=== PATIENT | male | born 1980 | race Caucasian/White ===

== ENCOUNTER 2017-03-05 19:56 | Emergency (ER) | payer OTHER ==
[~2017-03-05] VITALS: Ht 177.8 cm; Wt 96.0 kg
[2017-03-05 20:03] VITALS: BP 125/62; PULSE 90; RESP 18
[2017-03-05 20:06] VITALS: BP 125/62; PULSE 85; RESP 18; O2SAT 98
[2017-03-05] MEDS ORDERED: ONDANSETRON HCL 4 MG/2 ML VIAL IV ONE (20:15)
[2017-03-05] MEDS ORDERED: SODIUM CHLOR 0.9% 1000 ML INJ 1,000 ML IV ONE ×2 (20:15→21:15)
[2017-03-05] MEDS ORDERED: RISP3 PO (20:22)
[2017-03-05] MEDS ORDERED: REST15CA PO (20:22)
[2017-03-05] MEDS ORDERED: TRAZ1TAB45 PO (20:22)
[2017-03-05] MEDS ORDERED: SERO100T PO (20:22)
[2017-03-05] MEDS ORDERED: PROZ20CA11 PO (20:22)
[2017-03-05 20:23] VITALS: BP 123/62; PULSE 81; RESP 18; O2SAT 98
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
[2017-03-05 20:30] VITALS: TEMP 97.8
[2017-03-05 20:39] LABS: AUTOMATED NEUTROPHIL # 4.7 TH/MM3 (1.8-7.7); BASOPHIL # 0.1 TH/MM3 (0-0.2); BASOPHIL % 0.9 % (0.0-2.0); EOSINOPHIL # 0.2 TH/MM3 (0-0.4); EOSINOPHIL % 2.3 % (0.0-4.0); HEMATOCRIT 39.1 % (39.0-51.0); HEMO FLAGS DIFF FINAL; LYMPH % 27.3 % (9.0-44.0); LYMPHOCYTE # 2.2 TH/MM3 (1.0-4.8); MEAN CELL VOLUME 94.8 FL (80.0-100.0); MEAN CORPUSCULAR HEMOGLOBIN 32.7 PG (27.0-34.0); MEAN CORPUSCULAR HGB CONC 34.5 % (32.0-36.0); NEUT % 58.5 % (16.0-70.0); PLATELET COUNT 224 TH/MM3 (150-450); RED BLOOD COUNT 4.12 MIL/MM3 (4.50-5.90); RED CELL DISTRIBUTION WIDTH 13.8 % (11.6-17.2); WHITE BLOOD COUNT 8.1 TH/MM3 (4.0-11.0)
[2017-03-05 20:56] LABS: ANION GAP 8 MEQ/L (5-15); AST (GOT) 11 U/L (15-37); BICARBONATE 27.4 MEQ/L (21.0-32.0); BLOOD UREA NITROGEN 15 MG/DL (7-18); CHLORIDE 103 MEQ/L (98-107); GLOMERULAR FILTRATION RATE 89 ML/MIN (>89); MAGNESIUM 2.2 MG/DL (1.5-2.5); SODIUM (NA) 138 MEQ/L (136-145)
[2017-03-05 20:57] LABS: ALT (GPT) 19 U/L (12-78)
[2017-03-05 20:58] LABS: ALCOHOL LESS THAN 3 MG/DL (0-5)
[2017-03-05] MEDS ORDERED: POTASSIUM CHLORIDE 20 MEQ CONTROLLED RELEASE TAB PO ONE (21:00)
[2017-03-05 21:05] LABS: ACETAMINOPHEN LESS THAN 2.0 MCG/ML (10.0-30.0); ALKALINE PHOSPHATASE 78 U/L (45-117); TOTAL BILIRUBIN ADULT 0.3 MG/DL (0.2-1.0)
[2017-03-05 22:38] LABS: BLOOD, URINE SMALL (NEG); COMMENT (UR) CULT NOT INDICATED; CULTURE IF INDICATED CULT NOT INDICATED; GLUCOSE,URINE NEG (NEG); KETONE, URINE NEG (NEG); MUCUS URINE FEW /lpf (OCC); NITRITE,URINE NEG (NEG); URINE COLOR YELLOW (YELLW/STRAW)
[2017-03-06 00:30] VITALS: BP 104/58; PULSE 68; RESP 16; O2SAT 97
[2017-03-06 06:53] VITALS: BP 106/59; PULSE 65; RESP 12; O2SAT 95
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
--- NOTE | 2017-03-06 14:20 | EKG ---
Date Performed: 03/05/2017 Time Performed: 20:05:46 PTAGE: 36 years EKG: Sinus rhythm NORMAL ECG NO PREVIOUS TRACING DOCTOR: Michael Jennings Interpretating Date/Time 03/06/2017 14:14:20
--- NOTE | 2017-03-06 14:21 | PD ---
Physical Exam Date Seen by Provider: Mar 06, 2017 Time Seen by Provider: 07:00 Narrative Patient signed out to me by Dr. Castanon at 7 AM, medically cleared awaiting psychiatric evaluation, please see Dr. Castanon's note for further details. At 2: 20 PM, Dr. Pan of psychiatry had seen the patient, and notes that he thinks that the patient is malingering, does not feel that he has an immediate suicide risk although patient has suicidal ideation in the past. At this point, he thinks that the patient can follow-up with [facility] on a voluntary basis which the patient had agreed to do. My plan would be to release him so he can follow-up with [facility]. Return as needed for any new issues. Data Data Last Documented VS Vital Signs Date Time Temp Pulse Resp B/P (MAP) Pulse Ox O2 Delivery O2 Flow Rate FiO2 03/06/17 06:53 65 12 106/59 (75) 95 Room Air 03/05/17 20:30 97.8 Orders Orders Complete Blood Count With Diff (03/05/17 20:15) Comprehensive Metabolic Panel (03/05/17 20:15) Lipase (03/05/17 20:15) Urinalysis - C+S If Indicated (03/05/17 20:15) Magnesium (Mg) (03/05/17 20:15) Thyroid Stimulating Hormone (03/05/17 20:15) Iv Access Insert/Monitor (03/05/17 20:15) Ecg Monitoring (03/05/17 20:15) Oximetry (03/05/17 20:15) Drug Screen, Random Urine (03/05/17 20:15) Alcohol (Ethanol) (03/05/17 20:15) Salicylates (Aspirin) (03/05/17 20:15) Tylenol (Acetaminophen) (03/05/17 20:15) Sodium Chlor 0.9% 1000 Ml Inj (Ns 1000 M (03/05/17 20:15) Ondansetron Inj (Zofran Inj) (03/05/17 20:15) Oral Rehydration (03/05/17 20:18) Potassium Chloride (Kcl) (03/05/17 21:00) Diet As Tolerated (03/05/17 21:08) Psych Screen (03/05/17 21:08) Electrocardiogram (03/05/17 20:05) Sodium Chlor 0.9% 1000 Ml Inj (Ns 1000 M (03/05/17 21:15) Labs Laboratory Tests Test 03/05/17 20:15 03/05/17 22:00 White Blood Count 8.1 TH/MM3 Red Blood Count 4.12 MIL/MM3 Hemoglobin 13.5 GM/DL Hematocrit 39.1 % Mean Corpuscular Volume 94.8 FL Mean Corpuscular Hemoglobin 32.7 PG Mean Corpuscular Hemoglobin Concent 34.5 % Red Cell Distribution Width 13.8 % Platelet Count 224 TH/MM3 Mean Platelet Volume 8.4 FL Neutrophils (%) (Auto) 58.5 % Lymphocytes (%) (Auto) 27.3 % Monocytes (%) (Auto) 11.0 % Eosinophils (%) (Auto) 2.3 % Basophils (%) (Auto) 0.9 % Neutrophils # (Auto) 4.7 TH/MM3 Lymphocytes # (Auto) 2.2 TH/MM3 Monocytes # (Auto) 0.9 TH/MM3 Eosinophils # (Auto) 0.2 TH/MM3 Basophils # (Auto) 0.1 TH/MM3 CBC Comment DIFF FINAL Differential Comment Blood Urea Nitrogen 15 MG/DL Creatinine 0.96 MG/DL Random Glucose 115 MG/DL Total Protein 7.1 GM/DL Albumin 3.8 GM/DL Calcium Level 8.5 MG/DL Magnesium Level 2.2 MG/DL Alkaline Phosphatase 78 U/L Aspartate Amino Transf (AST/SGOT) 11 U/L Alanine Aminotransferase (ALT/SGPT) 19 U/L Total Bilirubin 0.3 MG/DL Sodium Level 138 MEQ/L Potassium Level 3.0 MEQ/L Chloride Level 103 MEQ/L Carbon Dioxide Level 27.4 MEQ/L Anion Gap 8 MEQ/L Estimat Glomerular Filtration Rate 89 ML/MIN Lipase 122 U/L Thyroid Stimulating Hormone 3rd Gen 1.840 uIU/ML Salicylates Level 4.0 MG/DL Acetaminophen Level LESS THAN 2.0 MCG/ML Ethyl Alcohol Level LESS THAN 3 MG/DL Urine Color YELLOW Urine Turbidity CLEAR Urine pH 6.0 Urine Specific [place] 1.013 Urine Protein TRACE mg/dL Urine Glucose (UA) NEG mg/dL Urine Ketones NEG mg/dL Urine Occult Blood SMALL Urine Nitrite NEG Urine Bilirubin NEG Urine Urobilinogen LESS THAN 2.0 MG/DL Urine Leukocyte Esterase NEG Urine RBC 6 /hpf Urine WBC 1 /hpf Urine Mucus FEW /lpf Urine Sperm RARE Microscopic Urinalysis Comment CULT NOT INDICATED Urine Opiates Screen NEG Urine Barbiturates Screen NEG Urine Amphetamines Screen NEG Urine Benzodiazepines Screen NEG Urine Cocaine Screen NEG Urine Cannabinoids Screen POS MDM Medical Record Reviewed: Yes Supervised Visit with PAULINA: No Diagnosis Primary Impression: Adjustment disorder with mixed disturbance of emotions and conduct Additional Impressions: Cannabis abuse Malingering Disposition: 66 DISC TO PSYCH CARE FACILITY (follow-up with [facility]) Condition: Stable Farnaz Comer MD Mar 06, 2017 14:21
[2017-03-06 15:00] VITALS: BP 115/70; PULSE 75; RESP 16; TEMP 98.6; O2SAT 98
== END 2017-03-06 16:00 | disposition home or self-care (01) ==
LOC: NEPC 19:56
DX: F43.25 Adjustment disorder with mixed disturbance of emotions and conduct (principal); F12.10 Cannabis abuse, uncomplicated; F17.210 Nicotine dependence, cigarettes, uncomplicated; R11.2 Nausea with vomiting, unspecified; R42 Dizziness and giddiness; R51 Headache; R30.0 Dysuria; R35.0 Frequency of micturition; F32.9 Major depressive disorder, single episode, unspecified; F41.9 Anxiety disorder, unspecified; Z59.0 Homelessness; Z79.899 Other long term (current) drug therapy
CPT/HCPCS: 80053; 80307; 81001; 83690; 83735; 84443; 85025; 93005; 96361; 96374; 99284; J2405; J7030

== ENCOUNTER 2017-04-02 21:35 | Emergency (ER) | payer SELFPAY ==
[~2017-04-02 21:35] MED LIST: PROZ20CA11 PO; REST15CA PO; RISP3 PO; SERO100T PO; TRAZ1TAB45 PO
[2017-04-02 21:38] VITALS: BP 133/63; PULSE 106; RESP 16; TEMP 100.5; O2SAT 96
[2017-04-02 23:37] VITALS: BP 129/59; PULSE 98; RESP 18; TEMP 100.4; O2SAT 98
[2017-04-02] MEDS ORDERED: BACT800T5 PO (23:52)
--- NOTE | 2017-04-02 23:53 | PD ---
HPI Chief Complaint: Fever Time Seen by Provider: 23:46 Travel History International Travel<30 days: No Contact w/Intl Traveler<30days: No Traveled to known affect area: No History of Present Illness HPI PATIENT NOTICED SORES TO EXTREMITIES OVER LAST 3 DAYS THAT ARE NOW "WEEPY" , DENIES N/V/D/ABDPAIN/BUSH/CP. NO AGGRAVATING/ALLEVIATING FACTORS. PT DENIES SI/HI PMHX: ASTHMA, BIPOLAR PFSH Past Medical History Asthma: Yes Anxiety: Yes Depression: Yes Diminished Hearing: No Tetanus Vaccination: Unknown Past Surgical History Surgical History: No Previous Surgery Social History Alcohol Use: No Tobacco Use: Yes (/2 PPD) Substance Use: No ("DENIES") Allergies-Medications (Allergen,Severity, Reaction): Coded Allergies: No Known Allergies (Unverified , 04/02/17) Reported Meds & Prescriptions Reported Meds & Active Scripts Active Reported Seroquel (Quetiapine Fumarate) 100 Mg Tab 150 Mg PO HS Risperdal (Risperidone) 3 Mg Tab 3 Mg PO HS Prozac (Fluoxetine HCl) 20 Mg Cap 20 Mg PO DAILY Trazodone (Trazodone HCl) 150 Mg Tablet 150 Mg PO HS Restoril (Temazepam) 15 Mg Cap 15 Mg PO BID PRN Review of Systems Except as stated in HPI: all other systems reviewed are Neg Skin: Positive Lesions Physical Exam Narrative GENERAL: SKIN: Warm and dry. PATIENT HAS 2 SORES ON RIGHT FOREARM (ONE 3CM THE OTHER 5CM ) HONEY CRUSTED LESION NOTED WITH SORROUNDING ERYTHEMA HEAD: Atraumatic. Normocephalic. EYES: Pupils equal and round. No scleral icterus. No injection or drainage. ENT: No nasal bleeding or discharge. Mucous membranes pink and moist. NECK: Trachea midline. No JVD. CARDIOVASCULAR: Regular rate and rhythm. RESPIRATORY: No accessory muscle use. Clear to auscultation. GASTROINTESTINAL: Abdomen soft, non-tender, nondistended. MUSCULOSKELETAL: Extremities without clubbing, cyanosis, or edema. No obvious deformities. NEUROLOGICAL: Awake and alert. No obvious cranial nerve deficits. Motor grossly within normal limits. Five out of 5 muscle strength in the arms and legs. Normal speech. PSYCHIATRIC: Appropriate mood and affect; insight and judgment normal. Data Data Last Documented VS Vital Signs Date Time Temp Pulse Resp B/P (MAP) Pulse Ox O2 Delivery O2 Flow Rate FiO2 10/16/17 23:37 100.4 98 18 129/59 (82) 98 Room Air Orders Orders Ibuprofen (Motrin) (04/03/17 00:00) Sulfamet-Trimeth Ds 800-160 Mg (Bactrim (04/03/17 00:00) MDM Medical Decision Making Medical Screen Exam Complete: Yes Emergency Medical Condition: Yes Medical Record Reviewed: Yes Differential Diagnosis CELLULITIS V LYMPHANGITIS V ABSCESS Narrative Course AFTER EVAL PATIENT NOTED TO NOT HAVE ANY MAJOR INDURATION/FLUCTUANCE OR STREAKING. Diagnosis Primary Impression: Cellulitis Qualified Codes: L03.113 - Cellulitis of right upper limb Patient Instructions: Cellulitis (ED), General Instructions Scripts Sulfamethoxazole-Trimethoprim (Bactrim DS) 800-160 Mg Tab 1 TAB PO BID for Infection, #20 TAB 0 Refills Prov: Abraham Lr MD 04/02/17 Disposition: 01 DISCHARGE HOME Condition: Stable Abraham Lr MD Apr 02, 2017 23:53
[2017-04-03] MEDS ORDERED: IBUPROFEN 600 MG TAB PO ONE
[2017-04-03] MEDS ORDERED: SULFAMETHOXAZOLE-TRIMETHOPRIM DS 800-160 MG TAB PO ONE
== END 2017-04-03 00:41 | disposition home or self-care (01) ==
LOC: NEPE 21:35
DX: L03.113 Cellulitis of right upper limb (principal); J45.909 Unspecified asthma, uncomplicated; Z72.0 Tobacco use
CPT/HCPCS: 99283

== ENCOUNTER 2017-07-21 11:22 | Emergency (ER) | payer OTHER ==
[~2017-07-21] VITALS: Ht 177.8 cm; Wt 93.0 kg
[~2017-07-21 11:22] MED LIST changes: +BACT800T5 PO; +TRAZ1TAB14 PO; -TRAZ1TAB45 PO
[2017-07-21 11:34] VITALS: BP 122/66; PULSE 66; RESP 24; TEMP 98.3; O2SAT 98
[2017-07-21 12:01] LABS: AUTOMATED NEUTROPHIL # 5.9 TH/MM3 (1.8-7.7); BASOPHIL # 0.1 TH/MM3 (0-0.2); BASOPHIL % 1.1 % (0.0-2.0); EOSINOPHIL # 0.1 TH/MM3 (0-0.4); EOSINOPHIL % 1.1 % (0.0-4.0); HEMATOCRIT 39.2 % (39.0-51.0); HEMOGLOBIN 13.8 GM/DL (13.0-17.0); LYMPH % 23.4 % (9.0-44.0); LYMPHOCYTE # 2.1 TH/MM3 (1.0-4.8); MEAN CORPUSCULAR HEMOGLOBIN 32.7 PG (27.0-34.0); MEAN CORPUSCULAR HGB CONC 35.1 % (32.0-36.0); MEAN PLATELET VOLUME 9.1 FL (7.0-11.0); MONO % 8.5 % (0.0-8.0); MONOCYTE # 0.8 TH/MM3 (0-0.9); NEUT % 65.9 % (16.0-70.0); PLATELET COUNT 195 TH/MM3 (150-450); RED BLOOD COUNT 4.21 MIL/MM3 (4.50-5.90); RED CELL DISTRIBUTION WIDTH 15.4 % (11.6-17.2); WHITE BLOOD COUNT 8.9 TH/MM3 (4.0-11.0)
--- NOTE | 2017-07-21 12:02 | RADRPT ---
EXAM DATE/TIME: 07/21/2017 11:45 [place] COMPARISON: No previous studies available for comparison. INDICATIONS : Chest pain. MEDICAL HISTORY : None. SURGICAL HISTORY : None. ENCOUNTER: Initial ACUITY: 1 day PAIN SCORE: 10/10 LOCATION: Bilateral upper chest FINDINGS: A single view of the chest demonstrates the lungs to be symmetrically aerated without evidence of mas s, infiltrate or effusion. The cardiomediastinal contours are unremarkable. Osseous structures are intact. CONCLUSION: No acute disease. Harvinder Evans MD on July 21, 2017 at 11:58 Board Certified Radiologist. This report was verified electronically.
[2017-07-21 12:12] LABS: PROTHROMBIN TIME - PATIENT 10.6 SEC (9.8-11.6)
[2017-07-21] MEDS ORDERED: predniSONE 50 MG TAB PO ONE (12:15)
[2017-07-21] MEDS: RESP: ALBUTEROL 2.5 MG/IPRATROPIUM 0.5 MG NEB (SCH) INH (12:21)
--- NOTE | 2017-07-21 12:23 | PD ---
HPI Chief Complaint: Chest Pain Time Seen by Provider: 11:30 Travel History International Travel<30 days: No Contact w/Intl Traveler<30days: No Traveled to known affect area: No History of Present Illness HPI 36yo M with COPD presents to the ED with c/o right sided chest pain after getting arrested today. Said after the officer put the handcuff on his right hand, he felt some tingling there. Also had palpitations and sharp right sided chest pain. Said he had similar chest pain yesterday but did not seek medical attention. [place] a little sob. Denies any fever, n/v, abdominal pain, family history of sudden cardiac deaths. Pt is a cig smoker but denies any cocaine or drug use. PFSH Past Medical History Asthma: Yes Anxiety: Yes Depression: Yes Diminished Hearing: No Musculoskeletal: Yes (DISCS IN NECK "SLIPPED" ) Influenza Vaccination: No Past Surgical History Surgical History: No Previous Surgery Social History Alcohol Use: No Tobacco Use: Yes (1/2 PPD) Substance Use: No ("DENIES") Allergies-Medications (Allergen,Severity, Reaction): Coded Allergies: No Known Allergies (Unverified , 04/02/17) Reported Meds & Prescriptions Reported Meds & Active Scripts Active Ventolin Hfa 18 GM Inh (Albuterol Sulfate) 90 Mcg/Act Aer 2 Puff INH Q4H PRN Deltasone (Prednisone) 20 Mg Tab 20 Mg PO BID 5 Days Bactrim DS (Sulfamethoxazole-Trimethoprim) 800-160 Mg Tab 1 Tab PO BID Reported Seroquel (Quetiapine Fumarate) 100 Mg Tab 150 Mg PO HS Risperdal (Risperidone) 3 Mg Tab 3 Mg PO HS Prozac (Fluoxetine HCl) 20 Mg Cap 20 Mg PO DAILY Trazodone (Trazodone HCl) 150 Mg Tablet 150 Mg PO HS Restoril (Temazepam) 15 Mg Cap 15 Mg PO BID PRN Review of Systems Except as stated in HPI: all other systems reviewed are Neg Physical Exam Narrative GENERAL: 36yo M not in distress. SKIN: Focused skin assessment warm/dry. HEAD: Atraumatic. Normocephalic. EYES: Pupils equal and round. No scleral icterus. No injection or drainage. ENT: No nasal bleeding or discharge. Mucous membranes pink and moist. NECK: Trachea midline. No JVD. CARDIOVASCULAR: Regular rate and rhythm. No murmur appreciated. RESPIRATORY: No accessory muscle use. Mild end expiratory wheezing. GASTROINTESTINAL: Abdomen soft, non-tender, nondistended. MUSCULOSKELETAL: No obvious deformities. No clubbing. No cyanosis. No edema. NEUROLOGICAL: Awake and alert. No obvious cranial nerve deficits. Motor grossly within normal limits. Normal speech. PSYCHIATRIC: Appropriate mood and affect; insight and judgment normal. Data Data Last Documented VS Vital Signs Date Time Temp Pulse Resp B/P (MAP) Pulse Ox O2 Delivery O2 Flow Rate FiO2 07/21/17 14:30 97.8 76 16 130/77 (94) 99 07/21/17 11:37 Room Air Orders Orders Electrocardiogram (07/21/17 11:30) Basic Metabolic Panel (Bmp) (07/21/17 11:30) Complete Blood Count With Diff (07/21/17 11:30) Magnesium (Mg) (07/21/17 11:30) Prothrombin Time / Inr (Pt) (07/21/17 11:30) Act Partial Throm Time (Ptt) (07/21/17 11:30) Troponin I (07/21/17 11:30) Chest, Single Ap (07/21/17 11:30) Prednisone (Deltasone) (07/21/17 12:15) Albuterol-Ipratropium Neb (Duoneb Neb) (07/21/17 12:15) Ibuprofen (Motrin) (07/21/17 13:00) Ed Discharge Order (07/21/17 14:26) Labs Laboratory Tests Test 07/21/17 11:46 White Blood Count 8.9 TH/MM3 Red Blood Count 4.21 MIL/MM3 Hemoglobin 13.8 GM/DL Hematocrit 39.2 % Mean Corpuscular Volume 93.0 FL Mean Corpuscular Hemoglobin 32.7 PG Mean Corpuscular Hemoglobin Concent 35.1 % Red Cell Distribution Width 15.4 % Platelet Count 195 TH/MM3 Mean Platelet Volume 9.1 FL Neutrophils (%) (Auto) 65.9 % Lymphocytes (%) (Auto) 23.4 % Monocytes (%) (Auto) 8.5 % Eosinophils (%) (Auto) 1.1 % Basophils (%) (Auto) 1.1 % Neutrophils # (Auto) 5.9 TH/MM3 Lymphocytes # (Auto) 2.1 TH/MM3 Monocytes # (Auto) 0.8 TH/MM3 Eosinophils # (Auto) 0.1 TH/MM3 Basophils # (Auto) 0.1 TH/MM3 CBC Comment DIFF FINAL Differential Comment Prothrombin Time 10.6 SEC Prothromb Time International Ratio 1.0 RATIO Activated Partial Thromboplast Time 22.6 SEC Blood Urea Nitrogen 11 MG/DL Creatinine 0.94 MG/DL Random Glucose 118 MG/DL Calcium Level 8.3 MG/DL Magnesium Level 2.2 MG/DL Sodium Level 141 MEQ/L Potassium Level 3.5 MEQ/L Chloride Level 107 MEQ/L Carbon Dioxide Level 27.7 MEQ/L Anion Gap 6 MEQ/L Estimat Glomerular Filtration Rate 91 ML/MIN Troponin I LESS THAN 0.02 NG/ML MDM Medical Decision Making Medical Screen Exam Complete: Yes Emergency Medical Condition: Yes Interpretation(s) EKG: NSR 74bpm. Normal axis. No ST segment elevation or depression. Differential Diagnosis Atypical chest pain vs. pneumonia vs. COPD exacerbation vs. malingering vs. anxiety Narrative Course 36yo M with atypical chest pain after getting arrested today. PERC negative. Labs reviewed, no leukocytosis. Do not think this is cardiac. Troponin negative. CXR showed no acute disease. Pt given ibuprofen. Pt had mild wheezing and is COPD so gave some nebulizer and prednisone. Pt reevaluated at bedside and feels better. Pt is to be discharge to police custody. Return precautions given. Diagnosis Primary Impression: Atypical chest pain Additional Impression: COPD exacerbation Patient Instructions: General Instructions Departure Forms: Tests/Procedures Additional Instructions: Please follow up with your primary care physician in 2-3 days. Return to the ED if symptoms worsen. Med/Other Pt SpecificInfo: Prescription(s) given Scripts Albuterol 18 GM Inh (Ventolin Hfa 18 GM Inh) 90 Mcg/Act Aer 2 PUFF INH Q4H Y for SHORTNESS OF BREATH, #1 INHALER 0 Refills Prov: Shonna Hernandez DO 07/21/17 Prednisone (Deltasone) 20 Mg Tab 20 MG PO BID for 5 Days, #10 TAB 0 Refills Prov: Shonna Hernandez DO 07/21/17 Disposition: 01 DISCHARGE HOME Condition: Stable Shonna Hernandez DO Jul 21, 2017 12:23
[2017-07-21 12:25] LABS: BICARBONATE 27.7 MEQ/L (21.0-32.0); BLOOD UREA NITROGEN 11 MG/DL (7-18); CALCIUM 8.3 MG/DL (8.5-10.1); CHLORIDE 107 MEQ/L (98-107); CREATININE 0.94 MG/DL (0.60-1.30); GLOMERULAR FILTRATION RATE 91 ML/MIN (>89); GLUCOSE,RANDOM 118 MG/DL (74-106); MAGNESIUM 2.2 MG/DL (1.5-2.5); SODIUM (NA) 141 MEQ/L (136-145)
[2017-07-21 12:28] LABS: TROPONIN I LESS THAN 0.02 NG/ML (0.02-0.05)
[2017-07-21] MEDS ORDERED: IBUPROFEN 600 MG TAB PO ONE (13:00)
[2017-07-21 14:05] VITALS: RESP 16
[2017-07-21] MEDS ORDERED: VENTAER INH (14:26)
[2017-07-21] MEDS ORDERED: PRED-503 PO (14:26)
[2017-07-21 14:30] VITALS: BP 130/77; TEMP 97.8
--- NOTE | 2017-07-22 12:29 | EKG ---
Date Performed: 07/21/2017 Time Performed: 11:34:05 PTAGE: 36 years EKG: Sinus rhythm WITH SINUS ARRHYTHMIA LOW QRS VOLTAGE IN PRECORDIAL LEADS BORDERLINE ECG Compared to PREVIOUS TRACING , sinus arrythmia is new, otherwise no significant change. PREVIOUS TRAC IN03/05/2017 20.05 DOCTOR: Bigg Pinedo Interpretating Date/Time 07/22/2017 12:29:04
== END 2017-07-21 14:35 | disposition home or self-care (01) ==
LOC: NEPE 11:22
DX: R07.89 Other chest pain (principal); J44.1 Chronic obstructive pulmonary disease with (acute) exacerbation; F41.9 Anxiety disorder, unspecified; F32.9 Major depressive disorder, single episode, unspecified; F17.210 Nicotine dependence, cigarettes, uncomplicated; R94.31 Abnormal electrocardiogram [ECG] [EKG]
CPT/HCPCS: 71045; 80048; 83735; 84484; 85025; 85610; 85730; 93005; 94640; 94664; 99285; J7512